=== PATIENT | female | born 1995 | race Caucasian/White ===

== ENCOUNTER → 2023-12-18 | Outpatient (CLI) | payer BC | LOC: M WHC 13:09 | PROVIDERS: ATTEND Obstetrics & Gynecology | DX: Z34.02 Encounter for supervision of normal first pregnancy, second trimester (principal) ==

== ENCOUNTER → 2024-01-30 | Outpatient (CLI) | payer BC ==
[2024-01-30 13:26] LABS: HEMATOCRIT 37.5 % (36.0-47.0); HEMOGLOBIN 12.1 g/dl (12.0-15.5); MEAN CORPUSCULAR HEMOGLOBIN 32.5 pg (27.0-33.0); MEAN CORPUSCULAR HGB CONC 32.3 g/dl (32.0-36.5); MEAN CORPUSCULAR VOLUME 100.8 fl (80.0-96.0); PLATELET COUNT, AUTOMATED 149 10^3/uL (150-450); RED BLOOD COUNT 3.72 10^6/uL (4.00-5.40); WHITE BLOOD COUNT 11.6 10^3/uL (4.0-10.0)
[2024-01-30 13:52] LABS: GLUCOSE CHALLENGE TEST 1 HOUR 93 MG/DL (LESS THAN 140)
[2024-01-30 14:27] LABS: HIV 1&2 SCREEN NEGATIVE (NEGATIVE)
[2024-01-30 14:35] LABS: HEPATITIS C VIRUS ABY INDEX 0.02 INDEX (<0.8)
[2024-01-30 15:30] LABS: GC DNA AMPLIFICATION NEGATIVE (NEGATIVE)
== END ==
LOC: M PLALAB 10:32
PROVIDERS: ATTEND Nurse Practitioner Family
DX: Z34.02 Encounter for supervision of normal first pregnancy, second trimester (principal)

== ENCOUNTER → 2024-03-30 | Outpatient (REF) | payer BC | LOC: M SFHCWAGY 12:24 | PROVIDERS: ATTEND Obstetrics & Gynecology | DX: Z36.89 Encounter for other specified antenatal screening (principal); Z3A.35 35 weeks gestation of pregnancy ==

== ENCOUNTER 2024-04-30 15:28 | Inpatient (IN) | payer BC ==
[~2024-04-30] VITALS: Ht 167.6 cm; Wt 70.3 kg
[2024-04-30] VITALS (17 sets, daily range): BP systolic 121–140; BP diastolic 61–89; O2SAT 98
[2024-04-30] MEDS ORDERED: PREN200C PO (15:51)
[2024-04-30] MEDS ORDERED: ALLE10TA62 PO (15:51)
[2024-04-30] MEDS ORDERED: COLA100C5 PO (15:51)
[2024-04-30] MEDS ORDERED: HOME MED LIST COMPLETE! XX SCH (15:55)
[2024-04-30 16:35] LABS: HEMATOCRIT 39.7 % (36.0-47.0); HEMOGLOBIN 13.7 g/dl (12.0-15.5); MEAN CORPUSCULAR HEMOGLOBIN 33.1 pg (27.0-33.0); MEAN CORPUSCULAR HGB CONC 34.5 g/dl (32.0-36.5); MEAN CORPUSCULAR VOLUME 95.9 fl (80.0-96.0); PLATELET COUNT, AUTOMATED 119 10^3/uL (150-450); RED BLOOD COUNT 4.14 10^6/uL (4.00-5.40); WHITE BLOOD COUNT 18.6 10^3/uL (4.0-10.0)
[2024-04-30 17:29] LABS: HIV 1&2 SCREEN NEGATIVE (NEGATIVE)
[2024-04-30 17:36] LABS: HEPATITIS C VIRUS ABY INDEX 0.03 INDEX (<0.8)
[2024-04-30] MEDS: OXYTOCIN DRIP 30 UNITS in IV 1 EA IV PRN (18:58)
[2024-04-30] MEDS: LIDOCAINE 1% MDV 20ML VIAL INFIL PRN (18:58)
[2024-04-30] MEDS ORDERED: METHYLERGONOVINE MALEATE 0.2 MG TAB PO PRN (19:25)
[2024-04-30] MEDS ORDERED: RHOGAM 300MCG (1500IU) INJ IM SCH (19:25)
[2024-04-30] MEDS ORDERED: IBUPROFEN 600MG TAB PO PRN (19:25)
[2024-04-30] MEDS ORDERED: ACETAMINOPHEN 325 MG TAB PO PRN (19:25)
[2024-04-30] MEDS: ACETAMINOPHEN 500 MG TAB PO PRN (19:37)
[2024-04-30] MEDS: DIBUCAINE 1% OINTMENT 30GM TOP PRN (21:38)
[2024-04-30] MEDS: IBUPROFEN 800 MG TAB PO PRN (23:18)
[2024-05-01 06:00] VITALS: BP 135/77; O2SAT 96
[2024-05-01] MEDS: DOCUSATE SODIUM 100MG CAPSULE PO PRN (08:15)
[2024-05-01] MEDS: PRENATAL VITAMINS CHEWABLE TABLET PO SCH (08:15)
[2024-05-01 17:55] VITALS: BP 134/71; O2SAT 99
[2024-05-02 06:00] VITALS: BP 137/82; O2SAT 96
[2024-05-02] MEDS: MEASLES,MUMPS,RUBELLA VACCINE INJ (MMR-II) SC.IMMUN ONE (07:23)
[2024-05-02] MEDS ORDERED: IBUP80TA PO (12:08)
== END 2024-05-02 15:10 | disposition home or self-care (01) | DRG 560 ==
LOC: M LDO 15:28 → M LDI 16:06 → M OBS 21:05
PROVIDERS: ADMIT Specialist; ATTEND Specialist
PROC: 0W8NXZZ Division of Female Perineum, External Approach (ICD-10-PCS; principal; 2024-04-30)
PROC: 10907ZC Drainage of Amniotic Fluid, Therapeutic from Products of Conception, Via Natural or Artificial Opening (ICD-10-PCS; 2024-04-30)
DX: O80 Encounter for full-term uncomplicated delivery (principal); Z88.2 Allergy status to sulfonamides; Z3A.40 40 weeks gestation of pregnancy; Z88.8 Allergy status to other drugs, medicaments and biological substances; Z37.0 Single live birth